=== PATIENT | male | born 1945 | race Caucasian/White ===

== ENCOUNTER 2022-01-15 13:33 | Outpatient (RCR) | payer MEDICARE, SELFPAY | END 2022-01-28 11:52 | disposition home or self-care (01) | LOC: HO.WCC 13:33 | PROVIDERS: PCP Physician Assistant Medical; Referring Provider Podiatrist; Visit Provider Surgery | DX: E10.621 Type 1 diabetes mellitus with foot ulcer (principal); L97.412 Non-pressure chronic ulcer of right heel and midfoot with fat layer exposed; Z79.4 Long term (current) use of insulin; Z87.891 Personal history of nicotine dependence | CPT/HCPCS: 99212; 99213 ==